=== PATIENT | male | born 1940 | race Caucasian/White ===

== ENCOUNTER → 2017-06-07 | Outpatient (CLI) | payer OTHER ==
[~2017-06-07] MED LIST: CENTRUM SILVER1 EAC2 PO; FISH OIL 1,001000 M2 PO
== END ==
LOC: HYPER 08:09
DX: K62.7 Radiation proctitis (principal); F06.4 Anxiety disorder due to known physiological condition; F33.1 Major depressive disorder, recurrent, moderate; G47.30 Sleep apnea, unspecified; Z85.828 Personal history of other malignant neoplasm of skin

== ENCOUNTER → 2017-06-12 | Outpatient (CLI) | payer OTHER ==
--- NOTE | ~2017-06-12 | EKG ---
[address] [place] [address] ELECTROCARDIOGRAM REPORT Name: MITZI LONGORIA Room #: REG CLI Yonis#: [id number] Admission: 06/12/17 Attend Phys: Tylor Maloney MD Discharge: Date of : 40 Report #: [id number] THIS REPORT FOR: //name// [facility] Test Date: 2017-06-12 Test Time: 08:52:20 Pat Name: MITZI LONGORIA Department: Room: Gender: [employer] Sk[employer]sembler: Carly SALCIDO : 1940 Requested By: Tylor Maloney Order Number: [id number] MD: Aman Ashraf Measurements Intervals [place] Rate: 63 P: 41 RI: 137 QRS: -50 QRSD: 100 T: -7 QT: 427 QTc: 438 Interpretive Statements Sinus rhythm Left axis deviation Borderline T abnormalities, inferior leads Compared to ECG 05/06/2015 06:36:18 Left-axis deviation now present Electronically Signed On 06-13-2017 17:21:56 CDT by Aman Ashraf [email or web address] <ELECTRONICALLY SIGNED> By: Aman Ashraf MD, [facility] 06/13/17 [id number] Aman Ashraf MD, [facility] /EPI
== END ==
LOC: RAD 07:46
DX: Z13.9 Encounter for screening, unspecified (principal); K62.7 Radiation proctitis